=== PATIENT | male | born 2000 | race Caucasian/White ===

== ENCOUNTER 2023-01-30 13:04 | Emergency (ER) | payer BC, MEDICARE, OTHER ==
[~2023-01-30] VITALS: Ht 175.3 cm; Wt 88.5 kg
[2023-01-30 14:37] LABS: Source, Urine Clean Catch
[2023-01-30 14:39] LABS: Appearance, Urine Clear (Clear); Bilirubin, Urine Neg (Neg); Blood, Urine Neg (Neg); Color, Urine Yellow (P-Yellow); Glucose Qualitative, Urine Neg (Neg); Ketones, Urine Neg (Neg); Leukocyte Esterase, Urine Neg (Neg); Nitrite, Urine Neg (Neg); Protein, Urine Neg (Neg); Urobilinogen, Urine NORM (Normal)
== END 2023-01-30 15:45 | disposition home or self-care (01) ==
LOC: ER 13:04
PROVIDERS: Student in an Organized Health Care Education/Training Program
DX: G44.209 Tension-type headache, unspecified, not intractable (principal)
CPT/HCPCS: 81003; 99283

== ENCOUNTER 2025-07-23 11:23 | Emergency (ER) | payer BC, MEDICARE, OTHER ==
[~2025-07-23] VITALS: Ht 172.7 cm; Wt 90.7 kg
[2025-07-23 11:49] VITALS: BP 145/85
[2025-07-23] MEDS ORDERED: Albuterol 2.5 MG/3 ML VIAL INH ONE (11:55)
[2025-07-23] MEDS ORDERED: BENZ100A PO (14:27)
[2025-07-23] MEDS ORDERED: Prednisone20 MG PO (14:27)
[2025-07-23] MEDS ORDERED: BUDESONIDE-FO10.2 G2 INH (14:27)
== END 2025-07-23 14:37 | disposition home or self-care (01) ==
LOC: ER 11:23
DX: R05.9 Cough, unspecified (principal); J45.909 Unspecified asthma, uncomplicated
CPT/HCPCS: 71046; 99283-25